=== PATIENT | female | born 1980 | race Caucasian/White ===

== ENCOUNTER → 2024-04-19 | Day surgery (SDC) | payer OTHER ==
[2024-04-14 08:53] VITALS: BMI 26.2
[~2024-04-19] MED LIST: HYDROmorphone (PF) 1 MG/ML ONE; HYDROmorphone 0.5 MG/0.5 ML SYRINGE IVP PRN; KETOROLAC 30 MG/ML 1 ML VIAL ONE; LIDOCAINE 1% (10MG/ML) FOR IV START INTRADERMA PRN; LIDOCAINE 1% INJ 10MG/ML (20 ML MDV) ONE; MIDAZOLAM 2 MG/2 ML VIAL IV PRN; MIDAZOLAM 2 MG/2 ML VIAL ONE; PROPOFOL 10 MG/ML 20 ML VIAL IV ONE; fentaNYL (PF) 50 MCG/ML 2 ML AMP IVP PRN; fentaNYL (PF) 50 MCG/ML 2 ML AMP ONE
[2024-04-19] MEDS: IV FLUID CONTINUATION 1,000 ML IV ONE (12:27)
[2024-04-19 12:29] LABS: Glucose,Whole Blood 87 mg/dL (70-110)
[2024-04-19] MEDS: DEXAMETHASONE SOD PHOSPHATE 4 MG/ML 1 ML VIAL IV ONE (12:31)
[2024-04-19] MEDS: ONDANSETRON 4 MG/2 ML VIAL IVP ONE (12:31)
[2024-04-19] MEDS: LACTATED RINGERS 1,000 ML IV SCH (12:31)
[2024-04-19] MEDS: BUPIVACAINE (PF) 0.5% 30 ML VIAL SQ ONE ×2 (13:47)
--- NOTE | 2024-04-19 13:54 | P.OP ---
Date of Procedure: 04/19/24 Preoperative Diagnosis: 1. Torn lateral meniscus right knee 2. Osteoarthritis right knee Postoperative Diagnosis: 1. Torn lateral meniscus right knee 2. Grade 2 chondromalacia patella femoral condyle 3. Synovitis Procedure(s) Performed: 1. Arthroscopy of the right knee with partial lateral meniscectomy (40% of the lateral meniscus removed) 2. Chondroplasty patella femoral condyle 3. Partial synovectomy of the medial femoral, lateral femoral, and patellofemoral compartments Anesthesia: RUSSA Surgeon: Ck Benitez Estimated Blood Loss (ml): 5 Pathology: none sent Condition: stable Disposition: PACU Indications for Procedure: This is a 44-year-old female that presented to my office with pain in her right knee. MRI has demonstrated torn lateral meniscus and after discussing the surgical and nonsurgical treatment options with her at length, she wishes to proceed with arthroscopy of her right knee with partial lateral meniscectomy and debridement. Informed consent was obtained. Operative Findings: The operative findings are consistent with a torn lateral meniscus, grade 2 chondral malacia patella femoral condyle, and synovitis. Description of Procedure: Patient was seen and evaluated in the preoperative area, the operative site was marked with a skin marker. The patient was then brought to the operating room and given 2 g of Ancef intravenously. A general anesthetic was administered by the anesthesia department. Tourniquet was placed on the right upper thigh and the left lower extremity was then prepped and draped in usual sterile fashion. A universal timeout was then performed confirming the patient's name, surgical site, ALLERGIES, and consent. The limb was then exsanguinated and tourniquet insufflated to 250 mmHg. Standard inferior medial and inferior lateral portals were established in the knee. The trochar was inserted in the inferolateral portal. Examination began at the patellofemoral joint. There is noted to be grade 2 chondral malacia the patellofemoral compartment and a moderate amount of synovitis. Next the medial compartment was visualized. The medial meniscus was intact. There was no chondral malacia of the mediofemoral compartment and synovitis. The notch area was then visualized and the ACL was intact. The Lateral compartment was then visualized and there was a tear of the lateral horn of the lateral meniscus. There was no evidence of chondromalacia, but a mild amount of synovitis. Next, using an arthroscopic shaver and a biter, a partial lateral meniscectomy was also performed with approximately 40% of the lateral meniscus excised. A partial synovectomy is performed the medial femoral, lateral femoral, patellofemoral compartments. Chondroplasty was also performed of the patella femoral and patellofemoral compartment of the knee. Knee was then copiously irrigated, instruments removed, incisions were closed with 4-0 nylon. 30 mL of quarter percent plain Marcaine was injected sterilely into the surgical area. A sterile dressing was then applied, and the tourniquet was released. Patient was then transferred to recovery room in stable condition.condition.
[2024-04-19 14:01] VITALS: TEMP 96.8
[2024-04-19 15:30] VITALS: BP 125/79; PULSE 109; RESP 16
== END ==
LOC: OR 11:59 → MERGE 11:59
PROVIDERS: ATTEND Orthopaedic Surgery
DX: S83.281A Other tear of lateral meniscus, current injury, right knee, initial encounter (principal); M17.11 Unilateral primary osteoarthritis, right knee; M22.41 Chondromalacia patellae, right knee; M65.161 Other infective (teno)synovitis, right knee; I10 Essential (primary) hypertension; E78.5 Hyperlipidemia, unspecified; E28.2 Polycystic ovarian syndrome; Z88.9 Allergy status to unspecified drugs, medicaments and biological substances; Z79.02 Long term (current) use of antithrombotics/antiplatelets; Z79.899 Other long term (current) drug therapy; X58.XXXA Exposure to other specified factors, initial encounter
CPT/HCPCS: 81025